=== PATIENT | male | born 1985 | race Two or more races ===

== ENCOUNTER → 2018-03-23 | Emergency (ER) | END | disposition home or self-care (01) ==

== ENCOUNTER 2018-12-08 04:02 | Emergency (ER) | payer MEDICAID ==
[~2018-12-08] VITALS: Ht 175.3 cm; Wt 102.4 kg
[~2018-12-08 04:02] MED LIST: CYCL10TA7 PO; DOCU-144 PO; GLYC1SUP92 PR; NAPR-985 PO
[2018-12-08 04:07] VITALS: Ht 175.3 cm; Wt 102.4 kg
[2018-12-08] MEDS ORDERED: CETI10CA PO (04:46)
[2018-12-08] MEDS ORDERED: FLUT9.9S NASAL (04:46)
[2018-12-08] MEDS ORDERED: NAPH15DR69 BOTH EYES (04:46)
--- NOTE | 2018-12-08 04:51 | ERD ---
ER Documentation Chief Complaint Chief Complaint sore throt/itchy throat for a few months HPI 32-year-old male presents for itchy throat, eyes and nose x3 months. He states that the has seasonal allergies. He is tried Benadryl and Claritin without relief. He was also given some shots about 3 weeks ago for allergies, unknown what the actual medication was but he states that he has not been helping. He denies other significant past medical history. He states his been sneezing. Denies fevers or chills. Denies chest pain or shortness of breath. No other modifying factors noted. No other treatments at home. ROS All systems reviewed and are negative except as per history of present illness. Medications Home Meds Active Scripts Naphazoline-Pheniramine* (Visine-A*) 15 Ml Drops, 2 DROP BOTH EYES Q6H PRN for RED EYES for 7 Days, #1 BOTTLE Prov:DARION BELTRÁN DO 12/08/18 Fluticasone Propionate (Flonase Allergy Relief) 9.9 Ml [place].susp, 2 SPRAY NASAL DAILY for allergy, #1 BOTTLE TO EACH NOSTRIL Prov:DARION BELTRÁN DO 12/08/18 Cetirizine Hcl* (Zyrtec*) 10 Mg Capsule, 10 MG PO DAILY for allergy, #30 TAB. CHEW Prov:DARION BELTRÁN DO 12/08/18 Docusate Sodium* (Colace*) 100 Mg Capsule, 100 MG PO BID PRN for CONSTIPATION, #30 CAP Prov:DONALD ALATORRE MD 03/23/18 Glycerin* (Glycerin (Adult)*) 1 Each Supp.rect, [address] DAILY PRN for CONSTIPATION, #10 SUPP.RECT Prov:DONALD ALATORRE MD 03/23/18 Cyclobenzaprine Hcl* (Cyclobenzaprine Hcl*) 10 Mg Tablet, 10 MG PO BID, #10 TAB Prov:SVETLANA NUGENT PA-C 01/16/16 Naproxen* (Naprosyn*) 500 Mg Tablet, 500 MG PO BID PRN for PAIN AND/OR INFLAMMATION, #30 TAB Prov:SVETLANA NUGENT PA-C 01/16/16 Allergies Allergies: Coded Allergies: No Known Allergy (Unverified , 12/08/18) PMhx/Soc Medical and Surgical Hx: pt denies Medical Hx, pt denies Surgical Hx History of Surgery: No Anesthesia Reaction: No Hx Neurological Disorder: No Hx Respiratory Disorders: No Hx Cardiac Disorders: No Hx Psychiatric Problems: No Hx Miscellaneous Medical Probl: No Hx Alcohol Use: Yes Hx Substance Use: No Hx Tobacco Use: No FmHx Family History: No coronary disease Physical Exam Vitals Vital Signs Date Temp Pulse Resp B/P (MAP) Pulse Ox O2 O2 Flow FiO2 Time Delivery Rate 12/08/18 97.0 86 18 131/83 97 04:07 (99) Physical Exam Const: No acute distress Head: Atraumatic Eyes: Mild bilateral conjunctival injections, no discharge ENT: Normal External Ears, bilateral tympanic membrane intact without erythema or bulging noted, there is some nasal mucosal erythema noted, mouth examination normal, no tonsillar swelling or exudate noted Neck: Full range of motion. No meningismus. Resp: Clear to auscultation bilaterally, no wheezing, rales, rhonchi Cardio: Regular rate and rhythm, no murmurs Skin: No petechiae or rashes Ext: No cyanosis, or edema Neur: Awake and alert Psych: Normal Mood and Affect Procedures/MDM Medical Decision Making: Differential diagnosis includes but not limited to seasonal allergies, sinusitis, conjunctivitis, uveitis, URI, pneumonia Patient appeared well on physical exam. Lungs are clear to auscultation, patient appeared well, there is no suspicion for pneumonia Symptoms consistent with a seasonal allergy ED course: Prescription(s): Patient given prescription for supportive medication(s), Flonase, allergy eyedrop, Zyrtec. Patient advised to follow up with PCP in 1-2 days. Patient advised to return to ED for new or worsening symptoms. Patient stable on discharge from the ED. Disclaimer: Inadvertent spelling and grammatical errors are likely due to EHR/dictation software use and do not reflect on the overall quality of patient care. Also, please note that the electronic time recorded on this note does not necessarily reflect the actual time of the patient encounter. Departure Diagnosis: Primary Impression: Allergy Encounter type: initial encounter Qualified Codes: T78.40XA - Allergy, unspecified, initial encounter Condition: Fair Patient Instructions: Allergy Medications, Seasonal Allergy Referrals: [facility] YOU HAVE RECEIVED A MEDICAL SCREENING EXAM AND THE RESULTS INDICATE THAT YOU DO NOT HAVE A CONDITION THAT REQUIRES URGENT TREATMENT IN THE EMERGENCY DEPARTMENT. FURTHER EVALUATION AND TREATMENT OF YOUR CONDITION CAN WAIT UNTIL YOU ARE SEEN IN YOUR DOCTORS OFFICE WITHIN THE NEXT 1-2 DAYS. IT IS YOUR RESPONSIBILITY TO MAKE AN APPOINTMENT FOR FOLOW-UP CARE. IF YOU HAVE A PRIMARY DOCTOR --you should call your primary doctor and schedule an appointment IF YOU DO NOT HAVE A PRIMARY DOCTOR YOU CAN CALL OUR PHYSICIAN REFERRAL HOTLINE AT IF YOU CAN NOT AFFORD TO SEE A PHYSICIAN YOU CAN CHOSE FROM THE FOLLOWING [facility] [address] [facility] [address] [facility]. [facility] [address] [facility] [address] [facility] [address]. [facility]. [address] Additional Instructions: Llame al doctor MAANA y shorty viktoria HUONG PARA DENTRO DE 1-2 QUINONES.Dgale a la secretaria que nosotros le instruimos hacer esta huong.Avise o llame si hernandez condicin se empeora antes de la huong. Regresa aqui si peor o no mejor. DARION BELTRÁN DO December 08, 2018 04:51
[2018-12-08 05:46] VITALS: BP 128/80; PULSE 72; RESP 18
== END 2018-12-08 05:47 | disposition home or self-care (01) ==
LOC: FTE 04:02
DX: J30.2 Other seasonal allergic rhinitis (principal)
CPT/HCPCS: 99283

== ENCOUNTER 2019-03-22 21:33 | Emergency (ER) | payer MEDICAID ==
[~2019-03-22] VITALS: Ht 172.7 cm; Wt 101.7 kg
[~2019-03-22 21:33] MED LIST changes: +AMOX1TAB10 PO; +CETI10CA PO; +FLUT9.9S NASAL; +IBUP-1542 PO; +NAPH15DR69 BOTH EYES
[2019-03-22 21:36] VITALS: BP 126/76; PULSE 74; RESP 18; Ht 172.7 cm; Wt 101.7 kg
== END 2019-03-22 23:12 | disposition home or self-care (01) ==
LOC: FTE 21:33
DX: K12.2 Cellulitis and abscess of mouth (principal)
CPT/HCPCS: 99283